=== PATIENT | male | born 1985 | race Caucasian/White ===

== ENCOUNTER 2019-09-09 07:19 | Emergency (ER) | payer SELFPAY ==
[~2019-09-09] VITALS: Ht 180.3 cm; Wt 90.0 kg
[2019-09-09 07:34] VITALS: BP 148/93
== END 2019-09-09 09:54 | disposition home or self-care (01) ==
LOC: ER 07:37
DX: R51 Headache (principal); H93.11 Tinnitus, right ear
CPT/HCPCS: 99284